=== PATIENT | female | born 1970 | race Caucasian/White ===

== ENCOUNTER 2017-04-22 01:21 | Emergency (ER) | payer OTHER ==
[~2017-04-22] VITALS: Ht 172.7 cm; Wt 65.5 kg
[~2017-04-22 01:21] MED LIST: AZITHROMYCIN250 MG PO; ERGOCALCIF50000 UNIT PO; HYDROCODON-ACE1 EAC7 PO; LINZESS145 MCG PO; PRILOSEC40 MG PO
[2017-04-22 03:07] LABS: HEMATOCRIT 38.4 % (36.0-46.0); MCHC 33.1 G/DL (30.0-36.0); MCV 90.8 FL (83-99); RBC DIS.WIDTH-CV 13.2 % (11.8-14.6); RBC DIS.WIDTH-SD 43.6 % (39-53); RED BLOOD COUNT 4.23 M/uL (3.80-5.20); WHITE BLOOD COUNT 6.5 K/uL (4.1-10.2)
[2017-04-22 03:18] LABS: CHLORIDE 109 mEq/L (99-109); POTASSIUM 4.1 mEq/L (3.7-5.4); SODIUM 142 mEq/L (136-147)
[2017-04-22 03:20] LABS: GLUCOSE 103 mg/dL (70-99)
[2017-04-22 03:22] LABS: ANION GAP 9 MEQ/L (2-14); TOTAL BILIRUBIN 0.5 mg/dL (0.0-1.0)
[2017-04-22 03:24] LABS: ALKALINE PHOSPHATASE 117 IU/L (3-129); GFR ESTIMATE (CALCULATED) > 59 mL/min/
[2017-04-22 03:25] LABS: UREA NITROGEN (BUN) 10 mg/dL (9-23)
[2017-04-22 03:36] LABS: QUANTITATIVE HCG < 4.0 MIU/ML
[2017-04-22 04:18] LABS: HEMATOLOGY COMMENT 1 SMEAR COMPATIBLE; MEAN PLAT.VOLUME 10.8 uM^3 (9.5-12.4); PLATELET COUNT 198 K/uL (156-360)
[2017-04-22 04:24] LABS: CREATINE KINASE 78 IU/L (1-294); TOTAL CK 78 IU/L (1-294)
[2017-04-22 04:29] LABS: CK-MB 0.6 ng/mL (0.0-4.9)
[2017-04-22] MEDS ORDERED: VALIUM5 MG PO (05:41)
[2017-04-22 08:01] VITALS: BP 111/64
== END 2017-04-22 08:29 | disposition home or self-care (01) ==
LOC: EME 01:21
DX: E86.0 Dehydration (principal); M54.41 Lumbago with sciatica, right side; M79.604 Pain in right leg; F17.200 Nicotine dependence, unspecified, uncomplicated
CPT/HCPCS: 80053; 81003; 82550; 82553; 84702; 85027; 99281; 99285; J1885; J7030

== ENCOUNTER 2017-08-22 11:34 | Emergency (ER) | payer OTHER ==
[~2017-08-22] VITALS: Ht 172.7 cm; Wt 65.3 kg
[~2017-08-22 11:34] MED LIST changes: +VALIUM5 MG PO
[2017-08-22 15:14] LABS: EOSINOPHIL (%) 2.7 % (0-5); EOSINOPHIL COUNT 0.3 K/uL (0-0.3); IMMATURE GRANULOCYTE (%) 0.5 % (0.0-0.7); IMMATURE GRANULOCYTE COUNT 0.1 K/uL; INSTRUMENT ABS NEUTROPHIL CT 6.8 K/uL; LYMPHOCYTE COUNT 2.4 K/uL (1.0-2.8); MCH 29.9 PG (29.0-34.0); MCHC 32.4 G/DL (30.0-36.0); MCV 92.4 FL (83-99); MEAN PLAT.VOLUME 9.5 uM^3 (9.5-12.4); MONOCYTE (%) 8.7 % (3-12); MONOCYTE COUNT 0.9 K/uL (0-0.8); NEUTROPHIL (%) 65.2 % (45-76); NEUTROPHIL COUNT 6.8 K/uL (1.8-6.4); PLATELET COUNT 386 K/uL (156-360); RBC DIS.WIDTH-CV 13.1 % (11.8-14.6); RBC DIS.WIDTH-SD 44.6 % (39-53); RED BLOOD COUNT 3.68 M/uL (3.80-5.20); WHITE BLOOD COUNT 10.5 K/uL (4.1-10.2)
[2017-08-22 15:23] LABS: CHLORIDE 103 mEq/L (99-109); POTASSIUM 3.7 mEq/L (3.7-5.4); SODIUM 138 mEq/L (136-147)
[2017-08-22 15:24] LABS: GLUCOSE 96 mg/dL (70-99)
[2017-08-22 15:26] LABS: ANION GAP 10 MEQ/L (2-14)
[2017-08-22 15:28] LABS: GFR ESTIMATE (CALCULATED) > 59 mL/min/
[2017-08-22 15:29] LABS: UREA NITROGEN (BUN) 9 mg/dL (9-23)
[2017-08-22 18:38] VITALS: BP 118/68
== END 2017-08-22 18:40 | disposition home or self-care (01) ==
LOC: EME 11:34
PROVIDERS: Physician Assistant
PROC: 0H97XZZ Drainage of Abdomen Skin, External Approach (ICD-10-PCS; principal; 2017-08-22)
DX: T81.4XXA Infection following a procedure, initial encounter (principal); L02.211 Cutaneous abscess of abdominal wall; Y83.4 Other reconstructive surgery as the cause of abnormal reaction of the patient, or of later complication, without mention of misadventure at the time of the procedure; Z98.84 Bariatric surgery status; Z98.890 Other specified postprocedural states; Z88.0 Allergy status to penicillin; Z87.891 Personal history of nicotine dependence
CPT/HCPCS: 74177; 80048; 85025; 87070; 87075; 87076; 87205; 99281; 99284; J7040